=== PATIENT | female | born 1980 ===

== ENCOUNTER → 2020-02-17 | Outpatient (CLI) | payer BC ==
--- NOTE | 2020-02-17 08:58 | WOMENS IMAGING REPORT ---
EXAM DESCRIPTION: U/S ABDOMEN LIMITED IMAGES COMPLETED DATE/TIME: 02/17/2020 7:52 am REASON FOR STUDY: R10.11 R10.11 RIGHT UPPER QUADRANT PAIN COMPARISON: None. TECHNIQUE: Dynamic and static grayscale images acquired of the abdomen and recorded on PACS. Additio nal selected color Doppler and spectral images recorded. LIMITATIONS: None. FINDINGS: PANCREAS: The visualized portions of the pancreas appear normal. LIVER: Normal contour and echotexture of the liver. LIVER VASCULATURE: Normal hepatopetal directional flow in the main portal vein. The hepatic veins ar e patent. GALLBLADDER: The gallbladder wall measures 2.3 mm in thickness. There is no cholelithiasis, sludge o r pericholecystic fluid. ULTRASOUND-DETECTED SRINIVASAN'S SIGN: Negative. INTRAHEPATIC DUCTS AND COMMON DUCT: The common bile duct measures 3.9 mm in diameter. There is no di latation of the intrahepatic ducts. INFERIOR VENA CAVA: Patent. AORTA: No aneurysm. RIGHT KIDNEY: The right kidney measures 10.8 cm in length. There is no hydronephrosis. PERITONEAL AND RIGHT PLEURAL SPACE: No ascites or effusions. OTHER: No other findings. IMPRESSION: NORMAL RIGHT UPPER QUADRANT ULTRASOUND. TECHNICAL DOCUMENTATION: JOB ID: [id number] [email or web address]- All Rights Reserved Reading location - IP/workstation name: [email or web address]
== END ==
LOC: WI 07:48
PROVIDERS: ATTEND Specialist
DX: R10.11 Right upper quadrant pain (principal)
CPT/HCPCS: 76705